=== PATIENT | male | born 1970 | race American Indian/Alaskan Native ===

== ENCOUNTER 2019-11-10 00:04 | Emergency (ER) | payer SELFPAY ==
[~2019-11-10] VITALS: Ht 172.7 cm; Wt 81.8 kg
[2019-11-10 00:07] VITALS: TEMP 98.4
[2019-11-10 00:48] LABS: BASO # 0.1 (0.0-0.2); BASO % 1.9 % (0.0-2.0); EOS % 0.3 % (0-4.0); GRAN # 3.7 (1.4-6.5); HEMOGLOBIN 12.5 g/dl (13.5-18.0); LYMPH # 2.3 (1.2-3.4); LYMPH % 33.8 % (20.0-51.0); MEAN CELL VOLUME 100 fl (80.0-100.0); MEAN CORPUSCULAR HEMOGLOBIN 34 pg (27.0-31.0); MEAN CORPUSCULAR HGB CONC 34 g/dl (33.0-37.0); MEAN PLATELET VOLUME 9.6 fl (7.4-10.4); MONO # 0.6 (0.1-0.6); MONO % 8.8 % (1.7-9.3); PLATELET COUNT 123 K/mm3 (130-400); RED BLOOD COUNT 3.67 M/mm3 (4.20-5.60); REDCELL DISTRIBUTION WIDTH-CV 18.2 % (11.5-14.5)
[2019-11-10 01:12] LABS: ALBUMIN 3.8 gm/dL (3.5-5.0); CALCIUM 7.4 mg/dL (8.4-10.2); CREATININE, serum 0.81 (0.66-1.25); POTASSIUM 3.2 mmol/L (3.4-5.0); TOTAL PROTEIN 6.7 gm/dL (6.4-8.2)
[2019-11-10 01:26] LABS: HEMATOCRIT 36.5 % (42.0-52.0)
[2019-11-10] MEDS ORDERED: NORVASC 10MG10 MG PO (03:59)
[2019-11-10] MEDS ORDERED: SUDAFED30 MG PO (03:59)
[2019-11-10] MEDS ORDERED: CEPHALEXIN500 M1 PO (03:59)
[2019-11-10 07:00] VITALS: BP 122/91; PULSE 87
== END 2019-11-10 07:17 | disposition home or self-care (01) ==
LOC: COL.ER 00:04
PROVIDERS: Emergency Medicine
DX: S02.2XXA Fracture of nasal bones, initial encounter for closed fracture (principal); S01.112A Laceration without foreign body of left eyelid and periocular area, initial encounter; I10 Essential (primary) hypertension; F10.129 Alcohol abuse with intoxication, unspecified; Y92.410 Unspecified street and highway as the place of occurrence of the external cause; Y04.8XXA Assault by other bodily force, initial encounter
CPT/HCPCS: J7030

== ENCOUNTER → 2019-12-24 | Outpatient (CLI) | payer SELFPAY ==
[~2019-12-24] MED LIST: CEPHALEXIN500 M1 PO; NORVASC 10MG10 MG PO; SUDAFED30 MG PO
[2019-12-24 15:39] VITALS: BP 135/78; PULSE 75; TEMP 99.8
== END ==
LOC: COL.ER 15:19
DX: Z48.02 Encounter for removal of sutures (principal)